=== PATIENT | female | born 1955 | race Caucasian/White ===

== ENCOUNTER 2016-10-12 16:44 | Emergency (ER) | payer OTHER | END 2016-10-12 16:50 | disposition home or self-care (01) | LOC: ER 16:44 | DX: N39.0 Urinary tract infection, site not specified (principal); J44.9 Chronic obstructive pulmonary disease, unspecified; E03.9 Hypothyroidism, unspecified; F17.210 Nicotine dependence, cigarettes, uncomplicated; Z90.49 Acquired absence of other specified parts of digestive tract; Z98.51 Tubal ligation status; Z79.899 Other long term (current) drug therapy; W10.9XXA Fall (on) (from) unspecified stairs and steps, initial encounter | CPT/HCPCS: 36415; 80307; Q9963; Q9967 ==

== ENCOUNTER 2016-12-02 12:39 | Emergency (ER) | payer OTHER | END 2016-12-02 15:42 | disposition home or self-care (01) | LOC: ER 12:39 | DX: N12 Tubulo-interstitial nephritis, not specified as acute or chronic (principal); N39.0 Urinary tract infection, site not specified; F17.210 Nicotine dependence, cigarettes, uncomplicated; Z79.899 Other long term (current) drug therapy | CPT/HCPCS: 36415; 96361; 96365 ==